=== PATIENT | female | born 1965 | race Caucasian/White ===

== ENCOUNTER 2023-01-22 13:58 | Emergency (ER) | payer MEDICAID ==
[~2023-01-22] VITALS: Ht 162.6 cm; Wt 75.0 kg
[2023-01-22 14:35] VITALS: TEMP 98.6; O2SAT 100
[2023-01-22 15:15] VITALS: BP 130/73; PULSE 82; RESP 18
[2023-01-22] MEDS ORDERED: KETOROLAC 30MG/ML VIAL IM ONE (15:15)
[2023-01-22] MEDS ORDERED: METHOCARBAMOL 500MG TABLET PO ONE (15:15)
[2023-01-22] MEDS ORDERED: METH-653 MT (17:12)
[2023-01-22] MEDS ORDERED: IBUP-2029 MT (17:12)
== END 2023-01-22 17:38 | disposition home or self-care (01) ==
LOC: ER 14:24
DX: S13.4XXA Sprain of ligaments of cervical spine, initial encounter (principal); E11.9 Type 2 diabetes mellitus without complications; I10 Essential (primary) hypertension; X58.XXXA Exposure to other specified factors, initial encounter; Y93.89 Activity, other specified; Y92.89 Other specified places as the place of occurrence of the external cause; Y99.8 Other external cause status
CPT/HCPCS: 99283; 73030; 93005; 96372; J1885

== ENCOUNTER 2023-01-24 22:03 | Emergency (ER) | payer MEDICAID ==
[~2023-01-24] VITALS: Ht 154.9 cm; Wt 52.6 kg
[~2023-01-24 22:03] MED LIST: IBUP-2029 MT; METH-653 MT
[2023-01-24 22:33] VITALS: O2SAT 98
[2023-01-25] MEDS ORDERED: KETOROLAC 60MG/2ML VIAL IM ONE
[2023-01-25] MEDS ORDERED: HYDROCODONE/ACETAMINOPHEN 5/325MG TABLET PO ONE (05:30)
[2023-01-25 06:00] VITALS: BP 121/69; PULSE 78; RESP 18; TEMP 98.4
== END 2023-01-25 06:33 | disposition home or self-care (01) ==
LOC: ER 22:03
DX: M54.12 Radiculopathy, cervical region (principal); M79.602 Pain in left arm; E11.9 Type 2 diabetes mellitus without complications; I10 Essential (primary) hypertension; Z98.890 Other specified postprocedural states
CPT/HCPCS: 99285; 72125; 96372; J1885